=== PATIENT | male | born 1940 | race Caucasian/White ===

== ENCOUNTER → 2017-04-13 | Outpatient (CLI) | payer MEDICARE ==
--- NOTE | 2017-04-13 15:39 | XR ---
EXAMINATION TYPE: XR bone survey complete DATE OF EXAM: 04/13/2017 COMPARISON: 03/21/2015 HISTORY: 76-year-old male with multiple myeloma, bone problems on the left side TECHNIQUE: 17 views. FINDINGS: Bony calvarium : 2 views of the bony calvarium demonstrate. Spine: Two views of the cervical, thoracic and lumbar spines are submitted. In the cervical spine, there is moderate degenerative disc disease at C5-C6. No suspicious lytic lesi on. In the thoracic spine, there is bridging endplate spondylosis. Vertebral body heights are maintained. In the lumbar there is moderate degenerative disc disease at L4-L5 with trace grade 1 retrolisthesis. Vertebral and facet arthropathy mid to lower lumbar spine. Vertebral body heights are maintained. No suspicious lytic lesion. CHEST: Old healed rib fracture deformities of the right sixth, seventh, and 8th posterolateral ribs with mya wily. No suspicious rib or clavicular lesion seen. Stringy atelectasis at the left base. PELVIS: Single view of the pelvis demonstrates moderate degenerative change in both hips. No suspicious lytic lesion seen. Humeri: Unchanged focal endosteal scalloping along the medial distal left humeral diaphysis. No other suspici ous lesion seen. Femurs: There is stable periprosthetic lucency about the femoral stem component. No suspicious lytic lesion o r endosteal scalloping. Degenerative changes of both hips. Moderate degenerative change within the ri ght medial compartment. IMPRESSION: Focal area of endosteal scalloping along the medial distal left humeral diaphysis. In retrospect, thi s is unchanged from 03/21/2015. There is otherwise no convincing radiographic evidence for myelomatous involvement.
== END | disposition home or self-care (01) ==
LOC: RADXRMAIN 12:53
PROVIDERS: ATTEND Internal Medicine Hematology & Oncology
DX: C90.21 Extramedullary plasmacytoma in remission (principal); C90.00 Multiple myeloma not having achieved remission; M89.8X4 Other specified disorders of bone, hand
CPT/HCPCS: 77075

== ENCOUNTER → 2017-12-22 | Outpatient (CLI) | payer MEDICARE ==
--- NOTE | 2017-12-22 14:26 | XR ---
EXAMINATION TYPE: XR bone survey complete DATE OF EXAM: 12/22/2017 COMPARISON: 04/13/2017 HISTORY: Follow up multiple myeloma without remission Bony calvarium : 2 views of the bony calvarium demonstrate no lytic or blastic lesion Spine: Two views of the cervical, thoracic and lumbar spines are submitted. No lytic or blastic lesi ons are identified. Moderately severe multilevel degenerative disc disease and spondylosis. PELVIS: Single view of the pelvis demonstrates no lytic or blastic lesion. UPPER EXTREMITIES: Two views of the upper extremities stable endosteal scalloping medial distal left humerus. LOWER EXTREMITIES: 2 views of the lower extremities no lytic or blastic lesions identified. CHEST: Healed right-sided rib fractures. No lytic or blastic lesions identified. IMPRESSION: 1. Stable bone survey
== END | disposition home or self-care (01) ==
LOC: RADXRMAIN 13:26
PROVIDERS: ATTEND Internal Medicine Hematology & Oncology
DX: C90.00 Multiple myeloma not having achieved remission (principal); C90.21 Extramedullary plasmacytoma in remission; E78.2 Mixed hyperlipidemia; M10.9 Gout, unspecified
CPT/HCPCS: 77075

== ENCOUNTER → 2018-05-04 | Outpatient (CLI) | payer MEDICARE ==
--- NOTE | 2018-05-04 12:16 | NM ---
EXAMINATION TYPE: NM pul vent and perfuse DATE OF EXAM: 05/04/2018 COMPARISON: NONE HISTORY: Shortness of breath TECHNIQUE: Utilizing inhalation of 40 mCi Tc 99m DTPA aerosol and intravenous injection of 4.8 mCi o f Tc 99m MAA, ventilation and perfusion images are acquired post injection in multiple projections. FINDINGS: No moderate or large perfusion defects are evident. No mismatched defects are evident. Few small subs egmental defects may be at the left base. No triple defect is evident. IMPRESSION: Low probability for pulmonary embolism based on PIOPED 2 criteria.
--- NOTE | 2018-05-04 15:37 | XR ---
EXAMINATION TYPE: XR chest 2V DATE OF EXAM: 05/04/2018 COMPARISON: 03/08/2015, 12/22/2017 INDICATION: Short of breath multiple myeloma TECHNIQUE: Frontal and lateral views of the chest are obtained. FINDINGS: The heart size is normal. The pulmonary vasculature is normal. The lungs are clear. Some posterior lateral rib expansion of 6 and seventh and possibly eighth ribs may be present. IMPRESSION: 1. There may be some stable expansion of the right posterior lateral sixth seventh and eighth ribs. O ld rib fractures would be within the differential.
== END | disposition home or self-care (01) ==
LOC: RADNMMAIN 10:52
PROVIDERS: ATTEND Internal Medicine Hematology & Oncology
DX: R06.02 Shortness of breath (principal)
CPT/HCPCS: 71046; 78582; A9540; A9567

== ENCOUNTER → 2018-07-24 | Outpatient (CLI) | payer MEDICARE ==
--- NOTE | 2018-07-28 09:52 | PE ---
Nuclear medicine PET/CT HISTORY: Multiple myeloma, initial Patient received 10.8 mCi F-18 FDG intravenously in delayed scanning was performed through the body No comparisons DLP 769.37 mGycentimeters Head and neck: No suspicious hypermetabolic uptake. No evident adenopathy. CHEST: No evident lung mass, no endobronchial lesion, pleural or pericardial effusion. Small hiatal h ernia is noted. There are coronary artery calcifications. Abdomen pelvis: Calcifications are present within the spleen. No retroperitoneal adenopathy. No suspi cious metabolic uptake. Diverticular change noted in the sigmoid colon. Prostate is enlarged. Bowel u ptake thought to be physiologic. Osseous structures: Within the proximal lower extremities there are minimal areas of mild hypermetabo lic uptake within the medullary canal on fusion images, axial image 57-62 on the right, axial image 4 6 bilaterally, right lower extremity axial image 42, 24, 15 and bilaterally at 20, axial image 1, SUV range 1-2. Medial aspect of the left clavicle also shows hypermetabolic uptake, SUV 4.5. Focus in th e sacrum laterally on the right also shows hypermetabolic uptake SUV 3.3. 11th rib on the right shows evidence of prior fracture and healing as do posterior right ribs 6 through 10. Upper extremities sh ow nonspecific uptake. IMPRESSION: Abnormal uptake as described within the skeleton compatible with patient's history of mul tiple myeloma
== END | disposition home or self-care (01) ==
LOC: RADPETMAIN 10:25
PROVIDERS: ATTEND Internal Medicine Hematology & Oncology
DX: C90.00 Multiple myeloma not having achieved remission (principal)
CPT/HCPCS: 78816; A9552

== ENCOUNTER 2018-12-13 05:52 | Emergency (ER) | payer MEDICARE ==
[2018-12-13 06:03] VITALS: TEMP 98.3
--- NOTE | 2018-12-13 06:03 | ED ---
Male Urogenital HPI - General Stated complaint: Urinary issues Time Seen by Provider: 12/13/18 06:02 Source: patient Mode of arrival: wheelchair Limitations: no limitations - History of Present Illness Initial comments: Wilfredo is an 78-year-old gentleman with a history of multiple myeloma currently undergoing chemotherapy who presents to the emergency department today for evaluation of urinary frequency. Patient reports that they have steroids makes him urinate frequently. reports that yesterday he had a fever of 100.6 however it resolved without intervention so they didn't come to the hospital last night. Today the patient continues to urinate frequently he does report that he feels that he voids his bladder completely when he urinates he doesn't have the urge to urinate immediately afterwards he has no dysuria or hematuria that is noted. He does have a history of prostate hypertrophy they usually doesn't have significant trouble urinating. - Related Data Home Medications Medication Instructions Recorded Confirmed Allopurinol [Zyloprim] 100 mg PO DAILY 03/08/15 12/13/18 Carvedilol [Coreg] 6.25 mg PO BID 03/08/15 12/13/18 Simvastatin 40 mg PO HS 03/08/15 12/13/18 Warfarin Sodium 4 mg PO DAILY 03/08/15 12/13/18 Acyclovir [Zovirax] 400 mg PO BID 12/13/18 12/13/18 Daratumumab [Darzalex] 100 mg IV Q14D 12/13/18 12/13/18 Dexamethasone 20 mg PO TH 12/13/18 12/13/18 Lenalidomide [Revlimid] 10 mg PO DIRECTED 12/13/18 12/13/18 RX: metFORMIN HCL 500 mg PO DAILY 12/13/18 12/13/18 Previous Rx's Medication Instructions Recorded RX: Azithromycin [Zithromax Z-pack] 0 mg PO DIRECTED #6 tab 12/13/18 Allergies Allergy/AdvReac Type Severity Reaction Status Date / Time ether AdvReac Vomiting Verified 12/13/18 07:44 Review of Systems ROS Statement: Those systems with pertinent positive or pertinent negative responses have been documented in the HPI. ROS Other: All systems not noted in ROS Statement are negative. Past Medical History Past Medical History: Atrial Fibrillation, Coronary Artery Disease (CAD), Cancer, Hyperlipidemia, Pulmonary Embolus (PE) Additional Past Medical History / Comment(s): multiple myeloma. gout History of Any Multi-Drug Resistant Organisms: None Reported Past Surgical History: Joint Replacement, Tonsillectomy Additional Past Surgical History / Comment(s): LT TKA. COLONOSCOPY Past Anesthesia/Blood Transfusion Reactions: No Reported Reaction Past Psychological History: No Psychological Hx Reported Smoking Status: Never smoker Past Alcohol Use History: Rare Past Drug Use History: None Reported - Past Family History Mother Family Medical History: No Reported History General Exam - General Exam Comments Initial Comments: Physical Exam GENERAL: Patient is well-developed and well-nourished. Patient is nontoxic and well- hydrated and is in no distress. HENT: Normocephalic, Atraumatic. EYES: PERRL, EOMI PULMONARY: Unlabored respirations. No audible rales rhonchi or wheezing was noted. CARDIOVASCULAR: There is a regular rate and rhythm without any murmurs gallops or rubs. ABDOMEN: Soft and nontender with normal bowel sounds. SKIN: Skin is clear with no lesions or rashes and otherwise unremarkable. : Deferred NEUROLOGIC: Patient is alert and oriented x3. Moving all extremities spontaneously MUSCULOSKELETAL: Normal extremities with adequate strength and full range of motion. No lower extremity swelling or edema. No calf tenderness. PSYCHIATRIC: Normal psychiatric evaluation. Limitations: no limitations Limitations: no limitations Course Vital Signs 12/13/18 05:57 Temperature 98.3 F Pulse Rate 94 Respiratory 20 Rate Blood Pressure 112/71 O2 Sat by Pulse 97 Oximetry Medical Decision Making - Medical Decision Making The patient was seen and evaluated history is obtained from patient and This 78-year-old woman currently undergoing chemotherapy who is presenting with urinary frequency, fever yesterday Given the patient's advanced age and immune compromised status. Workup will be initiated EKG was obtained for sepsis workup, EKG was obtained at 6:45 AM, rate is 77 rhythm is irregularly irregular narrow complex consistent with atrial fibrillat ion. QRS 90 QTc 434 there are no acute ST elevations or depressions no evidence of acute ischemia or infarction. Labs were unremarkable She was able to void, post void residual was less than 100 on bladder scan Chest x-ray suggestive of possible very early pneumonia given that the patient had a fever and now is reporting a minimally productive cough for couple of days I will treat for community-acquired pneumonia. Given the patient's advanced age and fact that he is on chemotherapy I did offer the patient admission to the hospital for IV antibiotics and monitoring however he feels safe going home at this time he would like to try oral antibiotics he will follow up with his very care doctor in the next 2 days. Return parameters were discussed all questions pertaining care were answered. - Lab Data Result diagrams: 12/13/18 06:37 12/13/18 06:37 Lab Results 12/13/18 12/13/18 12/13/18 Range/Units 06:37 06:37 06:37 WBC 5.8 (3.8-10.6) k/uL RBC 3.42 L (4.30-5.90) m/uL Hgb 11.5 L (13.0-17.5) gm/dL Hct 35.5 L (39.0-53.0) % MCV 104.0 H (80.0-100.0) fL MCH 33.7 (25.0-35.0) pg MCHC 32.4 (31.0-37.0) g/dL RDW 16.0 H (11.5-15.5) % Plt Count 184 (150-450) k/uL Neutrophils % 82 % Lymphocytes % 5 % Monocytes % 6 % Eosinophils % 6 % Basophils % 0 % Neutrophils # 4.8 (1.3-7.7) k/uL Lymphocytes # 0.3 L (1.0-4.8) k/uL Monocytes # 0.4 (0-1.0) k/uL Eosinophils # 0.4 (0-0.7) k/uL Basophils # 0.0 (0-0.2) k/uL Anisocytosis Slight Macrocytosis Moderate PT (9.0-12.0) sec INR (<1.2) APTT (22.0-30.0) sec Sodium 135 L (137-145) mmol/L Potassium 4.5 (3.5-5.1) mmol/L Chloride 105 (98-107) mmol/L Carbon Dioxide 25 (22-30) mmol/L Anion Gap 5 mmol/L BUN 18 (9-20) mg/dL Creatinine 1.18 (0.66-1.25) mg/dL Est GFR (CKD-EPI)AfAm 67 (>60 ml/min/1.73 sqM) Est GFR (CKD-EPI)NonAf 58 (>60 ml/min/1.73 sqM) Glucose 133 H (74-99) mg/dL Plasma Lactic Acid Tra 1.1 (0.7-2.0) mmol/L Calcium 8.1 L (8.4-10.2) mg/dL Total Bilirubin 0.9 (0.2-1.3) mg/dL AST 11 L (17-59) U/L ALT 16 L (21-72) U/L Alkaline Phosphatase 48 (38-126) U/L Total Protein 5.3 L (6.3-8.2) g/dL Albumin 3.2 L (3.5-5.0) g/dL Urine Color Urine Appearance (Clear) Urine pH (5.0-8.0) Ur Specific [place] (1.001-1.035) Urine Protein (Negative) Urine Glucose (UA) (Negative) Urine Ketones (Negative) Urine Blood (Negative) Urine Nitrite (Negative) Urine Bilirubin (Negative) Urine Urobilinogen (<2.0) mg/dL Ur Leukocyte Esterase (Negative) Urine RBC (0-5) /hpf Urine WBC (0-5) /hpf Ur Squamous Epith Cells (0-4) /hpf Urine Mucus (None) /hpf 12/13/18 12/13/18 Range/Units 06:37 07:45 WBC (3.8-10.6) k/uL RBC (4.30-5.90) m/uL Hgb (13.0-17.5) gm/dL Hct (39.0-53.0) % MCV (80.0-100.0) fL MCH (25.0-35.0) pg MCHC (31.0-37.0) g/dL RDW (11.5-15.5) % Plt Count (150-450) k/uL Neutrophils % % Lymphocytes % % Monocytes % % Eosinophils % % Basophils % % Neutrophils # (1.3-7.7) k/uL Lymphocytes # (1.0-4.8) k/uL Monocytes # (0-1.0) k/uL Eosinophils # (0-0.7) k/uL Basophils # (0-0.2) k/uL Anisocytosis Macrocytosis PT 15.9 H (9.0-12.0) sec INR 1.6 H (<1.2) APTT 32.8 H (22.0-30.0) sec Sodium (137-145) mmol/L Potassium (3.5-5.1) mmol/L Chloride (98-107) mmol/L Carbon Dioxide (22-30) mmol/L Anion Gap mmol/L BUN (9-20) mg/dL Creatinine (0.66-1.25) mg/dL Est GFR (CKD-EPI)AfAm (>60 ml/min/1.73 sqM) Est GFR (CKD-EPI)NonAf (>60 ml/min/1.73 sqM) Glucose (74-99) mg/dL Plasma Lactic Acid Tra (0.7-2.0) mmol/L Calcium (8.4-10.2) mg/dL Total Bilirubin (0.2-1.3) mg/dL AST (17-59) U/L ALT (21-72) U/L Alkaline Phosphatase (38-126) U/L Total Protein (6.3-8.2) g/dL Albumin (3.5-5.0) g/dL Urine Color Yellow Urine Appearance Clear (Clear) Urine pH 7.5 (5.0-8.0) Ur Specific [place] 1.020 (1.001-1.035) Urine Protein 2+ H (Negative) Urine Glucose (UA) Trace H (Negative) Urine Ketones 1+ H (Negative) Urine Blood Trace H (Negative) Urine Nitrite Negative (Negative) Urine Bilirubin Negative (Negative) Urine Urobilinogen <2.0 (<2.0) mg/dL Ur Leukocyte Esterase Negative (Negative) Urine RBC 3 (0-5) /hpf Urine WBC 4 (0-5) /hpf Ur Squamous Epith Cells <1 (0-4) /hpf Urine Mucus Rare H (None) /hpf Disposition Clinical Impression: Urinary frequency, CAP (community acquired pneumonia) Disposition: HOME SELF-CARE Instructions (If sedation given, give patient instructions): Community Acquired Pneumonia (DC) Additional Instructions: Contact Dr. Batres today for follow-up visit Prescriptions: RX: Azithromycin [Zithromax Z-pack] 0 mg PO DIRECTED #6 tab Is patient prescribed a controlled substance at d/c from ED?: No Referrals: Lars Batres MD [Primary Care Provider] - 1-2 days
[2018-12-13] MEDS ORDERED: SODIUM CHLORIDE 0.9% 500 ML 500 ML IV SCH (06:30)
[2018-12-13 06:58] LABS: Anisocytosis Slight; Basophils % (A) 0 %; Eosinophils # (A) 0.4 k/uL (0-0.7); Eosinophils % (A) 6 %; HCT 35.5 % (39.0-53.0); HGB 11.5 gm/dL (13.0-17.5); Lymphocytes # (A) 0.3 k/uL (1.0-4.8); Lymphocytes % (A) 5 %; MCH 33.7 pg (25.0-35.0); MCHC 32.4 g/dL (31.0-37.0); Macrocytosis Moderate; Mean Platelet Volume 8.3; Monocytes # (A) 0.4 k/uL (0-1.0); Monocytes % (A) 6 %; Neutrophils # (A) 4.8 k/uL (1.3-7.7); Neutrophils % (A) 82 %; Platelet Count 184 k/uL (150-450); RBC 3.42 m/uL (4.30-5.90); WBC 5.8 k/uL (3.8-10.6)
[2018-12-13 07:09] LABS: INR 1.6 (<1.2); Partial Thromboplastin Time 32.8 sec (22.0-30.0); Prothrombin Time 15.9 sec (9.0-12.0)
[2018-12-13 07:10] LABS: Albumin 3.2 g/dL (3.5-5.0); Calcium 8.1 mg/dL (8.4-10.2); Potassium 4.5 mmol/L (3.5-5.1); Total Bilirubin 0.9 mg/dL (0.2-1.3); Total Protein 5.3 g/dL (6.3-8.2)
[2018-12-13 08:13] LABS: Appearance,Urine Clear (Clear); Bilirubin,Urine Negative (Negative); Blood,Urine Trace (Negative); Color,Urine Yellow; Glucose,Urine (UA) Trace (Negative); Ketones,Urine 1+ (Negative); Leukocyte Esterase,Urine Negative (Negative); Mucus,Urine Rare /hpf; Nitrite,Urine Negative (Negative); PH, Urine 7.5 (5.0-8.0); Protein,Urine 2+ (Negative); RBC,Urine 3 /hpf (0-5); Squamous Epithelial Cell,Urine <1 /hpf (0-4); Urobilinogen,Urine <2.0 mg/dL (<2.0); WBC,Urine 4 /hpf (0-5)
--- NOTE | 2018-12-13 08:13 | XR ---
EXAMINATION TYPE: XR chest 2V DATE OF EXAM: 12/13/2018 COMPARISON: 05/04/2018 HISTORY: 78-year-old male with fever TECHNIQUE: PA and lateral views FINDINGS: Heart normal size. Mild elongation thoracic aorta. Old healed right posterolateral rib fracture defor mities with associated callus. The mild patchy peripheral left basilar density. No other consolidatio n or pleural effusion. IMPRESSION: Old healed right-sided rib fracture deformities. Mild patchy peripheral left basilar atelectasis vers us early infiltrate. Clinically correlate.
[2018-12-13 09:25] VITALS: BP 115/81; PULSE 71; RESP 16
== END 2018-12-13 09:15 | disposition home or self-care (01) ==
LOC: EC 05:52
DX: J18.9 Pneumonia, unspecified organism (principal); R35.0 Frequency of micturition; I25.10 Atherosclerotic heart disease of native coronary artery without angina pectoris; I48.91 Unspecified atrial fibrillation; M10.9 Gout, unspecified; E78.5 Hyperlipidemia, unspecified; C90.00 Multiple myeloma not having achieved remission; Z79.01 Long term (current) use of anticoagulants; Z79.899 Other long term (current) drug therapy; Z91.048 Other nonmedicinal substance allergy status; Z85.9 Personal history of malignant neoplasm, unspecified; Z86.711 Personal history of pulmonary embolism; Z96.652 Presence of left artificial knee joint
CPT/HCPCS: 36415; 51798; 71046; 80053; 81001; 83605; 85025; 85610; 85730; 87040; 87086; 93005; 99284

== ENCOUNTER → 2021-06-12 | Outpatient (CLI) | payer MEDICARE | END | disposition home or self-care (01) | LOC: LABWHC1 10:30 | PROVIDERS: ATTEND Internal Medicine | DX: Z20.822 Contact with and (suspected) exposure to COVID-19 (principal); R05.9 Cough, unspecified | CPT/HCPCS: U0003; C9803 ==

== ENCOUNTER → 2023-04-10 | Outpatient (CLI) | payer MEDICARE ==
--- NOTE | 2023-04-13 10:44 | PE ---
EXAMINATION TYPE: PET CT fusion skull to thigh DATE OF EXAM: 04/10/2023 COMPARISON: No recent pertinent imaging Prior PET/CT: 07/24/2018 HISTORY: Multiple myeloma, prostate cancer TECHNIQUE: Following the intravenous administration of 10.75 mCi of gallium-68 PSN october, whole body i mages are performed from the skull base to the midthigh. Images are reviewed on the computer in the coronal, axial, and sagittal planes. Reconstructed rotating images are created on independent workst [employer] and reviewed on the computer. A localization and attenuation correction CT is performed in co njunction with the PET scan. DLP: 537.16 plus 232.21 mGycm SCAN: Subsequent Blood glucose: 151 mg/dL Average Mediastinum SUV: 1.1 Average Liver SUV: 4.53 FINDINGS: NECK: There is normal increased uptake within the salivary glands. THORAX: No abnormal uptake ABDOMEN: No abnormal uptake PELVIS: There is a focus of radiotracer accumulation within the left inferior posterior lateral prost ate with an SUV of 15.12. This would be compatible with the patient's reported prostate cancer. OSSEOUS STRUCTURES: No abnormal uptake LOCALIZATION CT: No suspicious changes. Coronary artery calcifications noted. There is a lucency within the T1 posterior left posterior vertebral body., Image 66. No suspicious ra diotracer accumulation at this site. Old posterior right mid rib fracture noted. COMPARISON: The apparent lytic area with smooth borders appears stable over the interval at T1. No si gnificant interval change is evident. IMPRESSION: 1. Small focus of radiotracer accumulation along the posterior inferior left lateral prostate compati ble with the patient's reported prostate cancer. 2. No suspicious uptake elsewhere to suggest metastatic disease.
== END | disposition home or self-care (01) ==
LOC: RADPETMAIN 13:20
PROVIDERS: ATTEND Urology
DX: C61 Malignant neoplasm of prostate (principal); C90.00 Multiple myeloma not having achieved remission
CPT/HCPCS: 78815; A9596

== ENCOUNTER → 2023-05-30 | Outpatient (CLI) | payer MEDICARE ==
--- NOTE | 2023-05-31 14:55 | MR ---
EXAMINATION TYPE: MR Prostate wo/w con DATE OF EXAM: 05/30/2023 9:32 AM COMPARISON:PET/CT 04/10/2023. CLINICAL INDICATION:Male, 82 years old with history of C61 prostate ca; Elevated PSA, Abnormal biopsy showed adenoma carcinoma TECHNIQUE: Multi-planar, multi-sequence imaging of the pelvis is performed prior to and following the uncomplicated administration of bolus intravenous gadolinium. CONTRAST: 9.5 Gadobutrol Interpretive Criteria: PI-RADS v2.1 SERUM PSA: 23.3 on 10/20/2022. SURGICAL PATHOLOGY: Positive biopsy involving right lateral mid gland and left apex and left lateral apex. Charbel 7 for all positive sites. FINDINGS: Prostatic dimensions: 5.4 x 6.3 x 4.1 cm. Ellipsoid Volume:73.03 (PSA density=0.32 ng/mL/mL) Prostate gland: Area of increased PSMA uptake on prior PET/CT demonstrates a low T2 signal 13 x 17 mm lesion in the c entral gland apex which does not correlate completely size and position compared to PET/CT which may represent a BPH nodule. No evidence for high DWI/low ADC signal within this lesion or throughout the gland. Another lesion in the left lateral mid gland with intense uptake on prior PET/CT also does not have MRI correlate. Central gland BPH nodules present. (PI-RADS 2) SEMINAL VESICLES (SV): Diffusely collapse or atrophic, bilaterally. PERIPROSTATIC TISSUES: Unremarkable. LYMPH NODES: No enlarged pelvic lymph node. REMAINING PELVIS: Trabeculated bladder wall likely secondary to chronic bladder outlet obstruction. Scattered bladder wall diverticula present. No abnormal free or organized intrapelvic fluid collection. No pathologic bowel dilation or mural thickening. Colonic diverticula are present. Bilateral fat containing inguinal hernias. OSSEOUS STRUCTURES: No suspicious osseous abnormality. IMPRESSION: 1. No specific features for high-risk prostate cancer based on MR imaging. On PET/CT gallium-68 PSMA scan however there are at least 2 suspicious areas identified involving the left apex and left latera l mid gland concerning for clinically significant adenocarcinoma. Based on MRI Maximum PI-RADS score: 2. 2. Moderate BPH, estimated gland volume 73.03 mL. 3. No suspicious osseous lesion. No lymphadenopathy. No evidence of prostate adenocarcinoma involving the periprostatic tissues.
== END | disposition home or self-care (01) ==
LOC: RADMRIMAIN 08:21
PROVIDERS: ATTEND Radiology Radiation Oncology
DX: C61 Malignant neoplasm of prostate (principal); N40.0 Benign prostatic hyperplasia without lower urinary tract symptoms; R97.20 Elevated prostate specific antigen [PSA]
CPT/HCPCS: 72197; A9585

== ENCOUNTER → 2023-06-09 | Outpatient (CLI) | payer MEDICARE ==
[2023-06-09 15:38] LABS: Basophils # (A) 0.04 X 10*3/uL (0.00-0.10); Basophils % (A) 0.5 %; Eosinophils # (A) 0.13 X 10*3/uL (0.04-0.35); Eosinophils % (A) 1.8 %; HCT 47.5 % (39.6-50.0); HGB 15.4 g/dL (13.0-17.0); Lymphocytes # (A) 1.62 X 10*3/uL (0.90-5.00); MCHC 32.4 g/dL (32.0-37.0); MCV 104.9 FL (80.0-97.0); Mean Platelet Volume 10.8 FL (9.5-12.2); Monocytes # (A) 0.55 X 10*3/uL (0.20-1.00); Monocytes % (A) 7.5 %; NRBC Per 100 WBC 0 X 10*3/uL (0.00-0.01); Neutrophils # (A) 5.01 X 10*3/uL (1.80-7.70); Neutrophils % (A) 67.8 %; Platelet Count 203 X 10*3/uL (140-440); RBC 4.53 X 10*6/uL (4.40-5.60); WBC 7.38 X 10*3/uL (4.50-10.00)
[2023-06-09 15:44] LABS: BUN/Creat Ratio 16.85 Ratio (12.00-20.00); Blood Urea Nitrogen 21.9 mg/dL (9.0-27.0); Calcium 9.2 mg/dL (8.7-10.3); Carbon Dioxide 26.5 mmol/L (21.6-31.8); Chloride 104 mmol/L (96-109); Glucose 186 mg/dL (70-110); Potassium 4.8 mmol/L (3.5-5.5); Sodium 140 mmol/L (135-145)
== END | disposition home or self-care (01) ==
LOC: LABPAT 09:53
PROVIDERS: ATTEND Urology
DX: Z01.812 Encounter for preprocedural laboratory examination (principal); C61 Malignant neoplasm of prostate
CPT/HCPCS: 36415; 80048; 85025

== ENCOUNTER 2023-06-16 12:28 | Day surgery (SDC) | payer MEDICARE ==
[2023-06-11 16:00] VITALS: BMI 26.4
--- NOTE | 2023-06-11 17:10 | P.GSHP ---
History of Present Illness H&P Date: 06/11/23 Chief Complaint: Prostate Cancer The patient is an 82-year-old white male recently found to have an elevated PSA level of 23.3. DANIEL revealed the prostate to be moderately enlarges. He underwent a prostate ultrasound with biopsies. The prostate volume was 61 mL. 3 of 12 biopsies showed evidence of Charbel 7 prostate cancer. A PSM a PET/CT scan showed no metastases. He has elected to be treated with IMRT and androgen deprivation therapy. He received his first Lupron injection 06/08/2023. - Cardiovascular Cardiovascular: Reports irregular heart beat - Genitourinary (Male) Genitourinary: Reports nocturia Past Medical History Past Medical History: Atrial Fibrillation, Coronary Artery Disease (CAD), Cancer, Diabetes Mellitus, Hyperlipidemia, Pulmonary Embolus (PE) Additional Past Medical History / Comment(s): multiple myeloma. gout. prostate cancer History of Any Multi-Drug Resistant Organisms: None Reported Past Surgical History: Joint Replacement, Tonsillectomy Additional Past Surgical History / Comment(s): LT TKA Past Anesthesia/Blood Transfusion Reactions: No Reported Reaction Past Psychological History: No Psychological Hx Reported Smoking Status: Never smoker Past Alcohol Use History: Rare Past Drug Use History: None Reported - Past Family History Mother Family Medical History: No Reported History Medications and Allergies Home Medications Medication Instructions Recorded Confirmed Type Simvastatin 40 mg PO HS 03/08/15 06/11/23 History Warfarin Sodium 4 mg PO DAILY 03/08/15 06/11/23 History allopurinoL [Zyloprim] 100 mg PO DAILY 03/08/15 06/11/23 History Acyclovir [Zovirax] 400 mg PO BID 12/13/18 06/11/23 History Daratumumab [Darzalex] 100 mg IV Q14D 12/13/18 06/11/23 History Lenalidomide [Revlimid] 10 mg PO Q30D 12/13/18 06/11/23 History dexAMETHasone [Dexamethasone] 20 mg PO Q30D 12/13/18 06/11/23 History metFORMIN HCL 500 mg PO DAILY 12/13/18 06/11/23 History Allergies Allergy/AdvReac Type Severity Reaction Status Date / Time ether AdvReac Vomiting Verified 06/11/23 15:39 Surgical - Exam - General well developed, well nourished, no distress - Neck no masses, trachea midline - Respiratory normal respiratory effort - Abdomen Abdomen: soft, non tender, no guarding, no rigid, no rebound - Genitourinary normal penis with no external lesions, testicles non-tender - Rectum Rectum: normal sphincter tone, no masses, other (Prostate enlarged and smooth) - Psychiatric oriented to time, oriented to person, oriented to place, speech is normal, memory intact Assessment and Plan (1) Malignant neoplasm of prostate Status: Acute Code(s): C61 - MALIGNANT NEOPLASM OF PROSTATE SNOMED Code(s): 144074257 Plan: The [employer] implant has been reviewed in detail with the patient. He understands that the rationale for this is to create separation between the p rostate and rectum, thus reducing the risk of radiation proctitis. The material begins to breakdown 12-13 weeks following implant, and is reabsorbed by the body. Risks include anesthesia, bleeding, infection, and perineal discomfort. He understands that if the rectal wall is perforated the procedure will need to be aborted.
[~2023-06-16 12:28] MED LIST: LACTATED RINGERS 1,000 ML IV SCH; LIDOCAINE 1% (10MG/ML) FOR IV START INTRADERMA PRN
[2023-06-16 13:09] LABS: Glucose,Whole Blood 86 mg/dL (70-110)
[2023-06-16 13:14] VITALS: TEMP 91.9
[2023-06-16] MEDS ORDERED: PROPOFOL 10 MG/ML 20 ML VIAL IV ONE (15:12)
[2023-06-16] MEDS ORDERED: SODIUM CHLORIDE 0.9% 100 ML with ceFAZolin 2,000 MG IV ONE ×2 (15:14)
[2023-06-16] MEDS ORDERED: LIDOCAINE 1% INJ 10MG/ML (30 ML VIAL-PF) SQ ONE ×2 (15:24→15:25)
--- NOTE | 2023-06-16 15:36 | P.OP ---
Date of Procedure: 06/09/23 Preoperative Diagnosis: Prostate cancer Postoperative Diagnosis: same Procedure(s) Performed: SpaceOR gel placement Implants: SpaceOR gel placement Anesthesia: MAC Surgeon: Max Pacheco Estimated Blood Loss (ml): 1 Pathology: none sent Condition: stable Disposition: PACU Indications for Procedure: The patient is an 82-year-old white male recently found to have an elevated PSA level of 23.3. DANIEL revealed the prostate to be moderately enlarges. He underwent a prostate ultrasound with biopsies. The prostate volume was 61 mL. 3 of 12 biopsies showed evidence of Charbel 7 prostate cancer. A PSM a PET/CT scan showed no metastases. He has elected to be treated with IMRT and androgen deprivation therapy. He received his first Lupron injection 06/08/2023. Description of Procedure: The patient was taken to the operating room and placed in the dorsolithotomy position, with his legs supported in Eric stirrups. The external genitalia was prepped and draped sterilely. The transrectal ultrasound probe was placed intrarectally. The prostate was imaged. The probe was then placed within the stabilizing stand. A spinal needle was advanced under ultrasonic guidance to the level of the urogenital diaphragm, and lidocaine was used to infiltrate the tissues as the needle was withdrawn. Next, the SpaceOAR needle was passed through the midline of the perineum, 1-2 cm anterior to the anal opening. The needle was slowly advanced under ultrasonic guidance until the needle tip was located within the fat plane between the prostate and rectum, at the level of the mid prostate gland. The needle was confirmed to be midline on the axial imaging. A small amount of normal saline was injected for hydrodissection. Next, the SpaceOAR components were mixed and loaded into the Y connector per protocol. The Y connector was then connected to the needle, and the components were injected slowly over a course of approximately 10 seconds. A total of 10 ml was injected. Significant distance was created between the prostate and rectum, as desired. It should be noted that at no point was there any concern of rectal perforation. The needle was withdrawn, as well as the transrectal ultrasound probe, and the procedure was terminated. The patient tolerated the procedure well and was taken to the recovery room in stable condition
[2023-06-16 15:46] VITALS: RESP 16
[2023-06-16 16:10] VITALS: BP 122/70; PULSE 56
== END 2023-06-16 16:11 | disposition home or self-care (01) ==
LOC: OR 12:28
PROVIDERS: ATTEND Urology
DX: C61 Malignant neoplasm of prostate (principal); I48.91 Unspecified atrial fibrillation; I25.10 Atherosclerotic heart disease of native coronary artery without angina pectoris; E11.9 Type 2 diabetes mellitus without complications; E78.5 Hyperlipidemia, unspecified; F17.200 Nicotine dependence, unspecified, uncomplicated; Z86.711 Personal history of pulmonary embolism; Z85.46 Personal history of malignant neoplasm of prostate; Z90.89 Acquired absence of other organs; Z79.01 Long term (current) use of anticoagulants; Z79.899 Other long term (current) drug therapy; Z79.84 Long term (current) use of oral hypoglycemic drugs
CPT/HCPCS: 55874; J0690; J2001

== ENCOUNTER → 2023-09-21 | Outpatient (CLI) | payer MEDICARE ==
[2023-09-21 22:44] LABS: Prostate Specific Antigen 0.05 ng/mL (0.000-6.500)
[2023-09-21 22:51] LABS: Testosterone <10.00 ng/dL (86.98-780.10)
== END | disposition home or self-care (01) ==
LOC: LABWHC1 13:18
PROVIDERS: ATTEND Radiology Radiation Oncology
DX: C61 Malignant neoplasm of prostate (principal); C90.01 Multiple myeloma in remission
CPT/HCPCS: 36415; 84153; 84403

== ENCOUNTER → 2023-12-11 | Outpatient (CLI) | payer MEDICARE ==
[2023-12-11 17:44] LABS: Prostate Specific Antigen <0.01 ng/mL (0.000-6.500); Testosterone <10.00 ng/dL (86.98-780.10)
== END | disposition home or self-care (01) ==
LOC: LABWHC1 11:30
PROVIDERS: ATTEND Radiology Radiation Oncology
DX: C61 Malignant neoplasm of prostate (principal); C90.01 Multiple myeloma in remission
CPT/HCPCS: 36415; 84153; 84403

== ENCOUNTER → 2024-01-07 | Outpatient (CLI) | payer MEDICARE ==
[2024-01-07 15:23] LABS: ALT 12 U/L (10-49); AST 18 U/L (14-35); Albumin 4.4 g/dL (3.8-4.9); Albumin/Globulin Ratio 2.44 Ratio (1.60-3.17); Alkaline Phosphatase 48 U/L (41-126); BUN/Creat Ratio 25.31 Ratio (12.00-20.00); Blood Urea Nitrogen 40.5 mg/dL (9.0-27.0); Calcium 9.3 mg/dL (8.7-10.3); Carbon Dioxide 24.1 mmol/L (21.6-31.8); Chloride 104 mmol/L (96-109); Globulin 1.8 g/dL (1.6-3.3); Glucose 139 mg/dL (70-110); Potassium 4.2 mmol/L (3.5-5.5); Sodium 140 mmol/L (135-145); Total Bilirubin 0.4 mg/dL (0.3-1.2); Total Protein 6.2 g/dL (6.2-8.2)
[2024-01-11 15:35] LABS: NT-Pro-B-Type Natriuretic Pept 1666 pg/mL (0-450)
== END | disposition home or self-care (01) ==
LOC: LABWHC1 09:17
PROVIDERS: ATTEND Internal Medicine Interventional Cardiology
DX: I42.8 Other cardiomyopathies (principal)
CPT/HCPCS: 36415; 80053; 83880

== ENCOUNTER → 2024-01-08 | Outpatient (CLI) | payer MEDICARE ==
--- NOTE | 2024-01-08 08:45 | US ---
EXAMINATION TYPE: US kidneys/renal and bladder DATE OF EXAM: 01/08/2024 COMPARISON: CLINICAL INDICATION: Male, 83 years old with history of N28.9 DISORDER OF KIDNEY AND URETER, UNSPECIF IED; Hx prostate Ca. EXAM MEASUREMENTS: Right Kidney: 10.1 x 5.1 x 4.9 cm Left Kidney: 10.4 x 4.8 x 5.3 cm Right Kidney: Cortical thinning. Left Kidney: Lower mid anechoic lesion = 2.4 x 2.5 x 2.7 cm Bladder: Bladder wall diverticula seen Bilateral Jets not seen IMPRESSION: 1 inferior pole left renal cyst
== END ==
LOC: RADUSWWP 08:06
PROVIDERS: ATTEND Internal Medicine
DX: N28.1 Cyst of kidney, acquired (principal); N28.9 Disorder of kidney and ureter, unspecified
CPT/HCPCS: 76770

== ENCOUNTER → 2024-03-14 | Outpatient (CLI) | payer MEDICARE ==
[2024-03-14 15:26] LABS: NT-Pro-B-Type Natriuretic Pept 1688 pg/mL (0-450)
[2024-03-14 15:37] LABS: ALT 14 U/L (10-49); AST 17 U/L (14-35); Albumin/Globulin Ratio 2.22 Ratio (1.60-3.17); Alkaline Phosphatase 48 U/L (41-126); BUN/Creat Ratio 21.54 Ratio (12.00-20.00); Calcium 9.4 mg/dL (8.7-10.3); Carbon Dioxide 24.6 mmol/L (21.6-31.8); Chloride 110 mmol/L (96-109); Globulin 1.8 g/dL (1.6-3.3); Glucose 157 mg/dL (70-110); Sodium 145 mmol/L (135-145); Total Bilirubin 0.5 mg/dL (0.3-1.2); Total Protein 5.8 g/dL (6.2-8.2)
== END | disposition home or self-care (01) ==
LOC: LABWHC1 08:12
PROVIDERS: ATTEND Internal Medicine Interventional Cardiology
DX: I42.8 Other cardiomyopathies (principal)
CPT/HCPCS: 36415; 80053; 83880

== ENCOUNTER → 2024-06-16 | Outpatient (CLI) | payer MEDICARE ==
[2024-06-16 19:29] LABS: Testosterone <10.00 ng/dL (86.98-780.10)
[2024-06-16 19:53] LABS: Prostate Specific Antigen <0.01 ng/mL (0.000-6.500)
== END | disposition home or self-care (01) ==
LOC: LABWHC1 13:12
PROVIDERS: ATTEND Radiology Radiation Oncology
DX: C61 Malignant neoplasm of prostate (principal); C90.01 Multiple myeloma in remission
CPT/HCPCS: 36415; 84153; 84403

== ENCOUNTER → 2024-07-15 | Outpatient (CLI) | payer MEDICARE ==
[2024-07-15 16:50] LABS: NT-Pro-B-Type Natriuretic Pept 1416 pg/mL (0-450)
[2024-07-15 17:36] LABS: ALT 12 U/L (10-49); AST 15 U/L (14-35); Albumin 4.1 g/dL (3.8-4.9); Albumin/Globulin Ratio 2.16 Ratio (1.60-3.17); Alkaline Phosphatase 51 U/L (41-126); BUN/Creat Ratio 20.85 Ratio (12.00-20.00); Blood Urea Nitrogen 27.1 mg/dL (9.0-27.0); Calcium 8.8 mg/dL (8.7-10.3); Carbon Dioxide 23.4 mmol/L (21.6-31.8); Chloride 108 mmol/L (96-109); Globulin 1.9 g/dL (1.6-3.3); Glucose 154 mg/dL (70-110); Potassium 4.8 mmol/L (3.5-5.5); Sodium 144 mmol/L (135-145); Total Bilirubin 0.4 mg/dL (0.3-1.2)
== END | disposition home or self-care (01) ==
LOC: LABWHC1 11:12
PROVIDERS: ATTEND Internal Medicine Interventional Cardiology
DX: I42.8 Other cardiomyopathies (principal)
CPT/HCPCS: 36415; 80053; 83880

== ENCOUNTER → 2024-12-22 | Outpatient (CLI) | payer MEDICARE ==
[2024-12-22 15:28] LABS: Testosterone <10.00 ng/dL (86.98-780.10)
[2024-12-22 15:47] LABS: Prostate Specific Antigen <0.01 ng/mL (0.000-6.500)
== END | disposition home or self-care (01) ==
LOC: LABWHC1 10:48
PROVIDERS: ATTEND Radiology Radiation Oncology
DX: C61 Malignant neoplasm of prostate (principal); C90.01 Multiple myeloma in remission
CPT/HCPCS: 36415; 84153; 84403